=== PATIENT | female | born 1955 | race Caucasian/White ===

== ENCOUNTER 2018-03-05 11:56 | Day surgery (SDC) | payer BC ==
[~2018-03-05] VITALS: Ht 167.6 cm; Wt 69.5 kg
[2018-03-05] MEDS ORDERED: LACTATED RINGERS 1,000 ML IV SCH (12:29)
[2018-03-05] MEDS ORDERED: NONE PER PT (13:01)
[2018-03-05 13:02] VITALS: BP 133/73
[2018-03-05] MEDS ORDERED: PROPOFOL 10 MG/ML, 20ML ONE ×3 (13:08→14:03)
== END 2018-03-05 15:35 | disposition home or self-care (01) ==
LOC: OUT 11:56
PROVIDERS: ATTEND Internal Medicine
DX: Z09 Encounter for follow-up examination after completed treatment for conditions other than malignant neoplasm (principal); D12.2 Benign neoplasm of ascending colon; Z86.010 Personal history of colon polyps
CPT/HCPCS: 45380; 88305; 93005; J2704